=== PATIENT | male | born 1970 ===

== ENCOUNTER 2016-10-27 06:20 | Inpatient (IN) | payer OTHER ==
[2016-10-27 06:31] VITALS: BMI 26.8
[2016-10-27 06:39] LABS: BASO # 0.1 K/uL (0.0-0.2); BASO % 0.9 % (0.0-2.0); EOS # 0.1 K/uL (0.0-0.7); EOS % 0.6 % (0.0-4.0); HEMOGLOBIN 15.3 g/dL (12.0-18.0); LYMPH # 1.9 K/uL (1.0-4.3); MEAN CELL VOLUME 92.2 fL (80.0-94.0); MEAN CORPUSCULAR HEMOGLOBIN 30.7 pg (27.0-31.0); MEAN CORPUSCULAR HGB CONC 33.3 g/dL (33.0-37.0); MEAN PLATELET VOLUME 7.5 fL (7.2-11.7); MONO # 0.5 K/uL (0.0-0.8); MONO % 5.1 % (0.0-10.0); NEUT # 6.5 K/uL (1.8-7.0); NEUT % 72.4 % (50.0-75.0); NRBC % 0.1 % (0.0-2.0); RBC 4.97 Mil/uL (4.40-5.90); RED CELL DISTRIBUTION WIDTH 13.9 % (11.5-14.5)
[2016-10-27 06:46] LABS: PROTHROMBIN TIME 10.8 SECONDS (9.7-12.2)
[2016-10-27 06:55] LABS: ALB/GLOB RATIO 1.1 (1.0-2.1); ALBUMIN 4.3 g/dL (3.5-5.0); ALT/SGPT 40 U/L (21-72); AST/SGOT 52 U/L (17-59); BLOOD UREA NITROGEN 9 mg/dL (9-20); GFR AFRICAN-AMERICAN > 60; GFR NON-AFRICAN AMERICAN > 60
[2016-10-27 07:06] LABS: CK-MB 2.43 ng/mL (0.0-3.38)
[2016-10-27] MEDS ORDERED: Potassium Chloride 20 mEq/15 ml LIQ UD PO STA (07:14)
--- NOTE | 2016-10-27 07:14 | C.PDOC ---
History Of Present Illness Patient is a pleasant 46 yr old male who is c/o pressure-like left sided chest pain that started this morning. The chest pain is a "4 or 5" on a 1-10 scale. The pt also c/o a headache and that his BP is high. He ran out of his BP medication (Lisinopril 10mg) on Monday; he picked up a new prescription yesterday but has not taken any BP medication since Monday. The CP radiates down his arm. No SOB. (+) Nausea. No vomiting. No additional complaints at this time. PMD: Dr. Moustapha Ford Time Seen by Provider: 10/27/16 07:01 Chief Complaint (Nursing): Chest Pain History Per: Patient Onset/Duration Of Symptoms: Hrs Quality: Pressure Associated Symptoms: Nausea Past Medical History Reviewed: Historical Data, Nursing Documentation, Vital Signs Vital Signs: Last Vital Signs Temp 98.6 F 10/28/16 10:16 Pulse 64 10/28/16 10:16 Resp 20 10/28/16 10:16 BP 147/91 H 10/28/16 10:16 Pulse Ox 97 10/28/16 10:16 - Medical History PMH: HTN Family History: States: Hypertension - Social History Hx Alcohol Use: Yes (likes beer) Hx Substance Use: No - Immunization History Hx Tetanus Toxoid Vaccination: No Hx Influenza Vaccination: No Hx Pneumococcal Vaccination: No Review Of Systems Except As Marked, All Systems Reviewed And Found Negative. Constitutional: Negative for: Fever Cardiovascular: Positive for: Chest Pain Respiratory: Negative for: Shortness of Breath Gastrointestinal: Positive for: Nausea Neurological: Negative for: Weakness Psych: Negative for: Anxiety Physical Exam - Physical Exam Appears: Well, Non-toxic, No Acute Distress Skin: Normal Color, Warm Head: Atraumatic Eye(s): bilateral: Normal Inspection, EOMI Ear(s): Bilateral: Normal Nose: Normal Oral Mucosa: Moist Tongue: Normal Appearing Lips: Normal Appearing Teeth: Normal Dentition Gingiva: Normal Appearing Throat: Normal Neck: Normal, Normal ROM Lymphatic: Deferred Chest: Symmetrical, No Deformity Cardiovascular: Rhythm Regular Respiratory: Normal Breath Sounds, No Rales, No Rhonchi, No Wheezing Gastrointestinal/Abdominal: Normal Exam, Bowel Sounds, Soft, No Tenderness Rectal: Deferred Back: Normal Inspection Extremity: Normal ROM, Pedal Edema (mild, non-pitting to LE) Extremity: Bilateral: Atraumatic, Normal ROM Pulses: Left Radial: Normal, Right Radial: Normal Neurological/Psych: Oriented x3, Normal Motor, Normal Sensation ED Course And Treatment - Laboratory Results Result Diagrams: 10/28/16 06:31 10/28/16 06:31 ECG: Interpreted By Me ECG Rhythm: Sinus Tachycardia, R BBB (incomplete), Nonspecific Changes O2 Sat by Pulse Oximetry: 97 Medical Decision Making Medical Decision Making: Initial Impression: Headache and Chest Pain--likely due to BP medication noncompliance Initial Plan: Will give aspirin for CP and Tylenol for GERBER. Will give Lisinopril for elevated BP. EKG. Monitor pt. Check labs/CXR. Progress Notes: 9:15 AM - Case d/w Dr. Alek Sanchez. will admit the pt to his service as pt is requiring IV meds to lower his BP. Disposition - Disposition Disposition: HOSPITALIZED Disposition Time: 09:14 Condition: SERIOUS - Clinical Impression Clinical Impression: Chest pain, Hypokalemia, Hypertensive emergency Decision To Admit - Pt Status Changed To: Hospital Disposition Of: Inpatient - Admit Certification Admit to Inpatient:: After my assessment, the patient will require hospitalization for at least two midnights. This is because of the severity of symptoms shown, intensity of services needed, and/or the medical risk in this patient being treated as an outpatient. - InPatient: Physician Admission Certification: I certify that this patient requires 2 or more midnights of care for the following reason:: Patient with diastolic over 110 and has required IV anti-hypertensive agents - . Bed Request Type: Telemetry Patient Diagnosis: Chest pain, Hypokalemia, Hypertensive emergency
[2016-10-27] MEDS ORDERED: Potassium Chloride 20 mEq ER Tab PO ONE (07:23)
--- NOTE | 2016-10-27 08:10 | RAD ---
HISTORY: chest pain COMPARISON: No prior. FINDINGS: LUNGS: No active pulmonary disease. PLEURA: No significant pleural effusion identified, no pneumothorax apparent. CARDIOVASCULAR: Normal OSSEOUS STRUCTURES: Thoracic spondylosis VISUALIZED UPPER ABDOMEN: Normal. OTHER FINDINGS: None. IMPRESSION: No active disease.
[2016-10-27] MEDS ORDERED: Labetalol 25mg/5ml Syringe IVP STA (08:41)
[2016-10-27] MEDS ORDERED: Labetalol 25mg/5ml Syringe ONE (08:49)
[2016-10-27 13:08] LABS: CK-MB 2.05 ng/mL (0.0-3.38)
[2016-10-27] MEDS ORDERED: Sodium Chloride 0.45% 1,000 ML IV SCH (16:15)
[2016-10-27] MEDS: Multiple Vitamins Tab PO SCH (18:18)
[2016-10-27] MEDS: Enoxaparin 40 mg Syringe SC SCH (18:19)
[2016-10-27 19:14] LABS: CK-MB 1.93 ng/mL (0.0-3.38)
--- NOTE | 2016-10-27 20:15 | CP.PCM.HP ---
<Jonathan Mason E - Last Filed: 10/27/16 20:45> History of Present Illness - History of Present Illness History of Present Illness: CC: Chest Pressure and Headache. HPI: Patient is a 46 year old male with past medical of hypertension, who presents to the ED with chest/head pain and shortness of breath. Patient states that both pains began this morning at 5am, rating the pain in his head as 6/10 and the pain in his chest as 8/10. Patient describes the pain in his head as burning heat and states it is located mostly in the occipital region. He describes the chest pain as piercing and states it is located substernally , extending to the left, lateral chest wall. Patient denies radiation of both the chest and the head pain. Nothing makes the pain in his head better or worse. Standing up worsens his chest pain, but nothing makes it better and it is present at rest. Patient states that the chest pain is non-reproducible with movement, but reports tenderness to palpation of the chest wall. The patient has a history of both uncontrolled hypertension and alcohol abuse. Patient states he has not been taking his 10 mg Lisinopril for the past 3 months and that his blood pressure has not been controlled. Patient denies weakness, palpitations, abdominal pain, fever, chills, dizzines and urinary symptoms but admits to chest pain, dyspnea, diaphoresis, headache, nausea, tinnitus and left leg numbness. PMD: Moustapha Ford. 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 denies former or current tobacco use and illicit drug use but admits to ETOH use ( 2-4 beers/ day M- and 10 beers on monday and Monday) Medication given in the ER: Aspirin 325mg PO, Labetalol 20mg IV, Tylenol 975mg PO, lisinopril 10mg PO and K-dur 20meq Present on Admission - Present on Admission Any Indicators Present on Admission: No Review of Systems - Constitutional Constitutional: Headache. absent: Chills, Fever - EENT Eyes: Blurred Vision. absent: Loss of Peripheral Vision, Sees Flashes, Spots in Vision Ears: Tinnitus. absent: Dizziness Nose/Mouth/Throat: absent: Epistaxis, Sore Throat - Cardiovascular Cardiovascular: Chest Pain, Chest Pain at Rest, Diaphoresis, Dyspnea - Respiratory Respiratory: Dyspnea. absent: Cough, Wheezing - Gastrointestinal Gastrointestinal: absent: Abdominal Pain, Constipation, Diarrhea - Genitourinary Genitourinary: absent: Difficulty Urinating, Dysuria, Urinary Frequency - Musculoskeletal Musculoskeletal: Numbness - Neurological Neurological: Numbness, Headaches. absent: Dizziness, Weakness - Endocrine Endocrine: absent: Fatigue, Palpitations Past Patient History - Past Medical History & Family History Past Medical History?: Yes - Past Social History Smoking Status: Never Smoked - CARDIAC Hx Hypertension: Yes - MUSCULOSKELETAL/RHEUMATOLOGICAL Hx Falls: No - PSYCHIATRIC Hx Substance Use: No - SURGICAL HISTORY Hx Surgeries: No - ANESTHESIA Hx Anesthesia: No Meds Allergies/Adverse Reactions: Allergies Allergy/AdvReac Type Severity Reaction Status Date / Time No Known Allergies Allergy Verified 05/09/16 09:37 Results - Vital Signs Recent Vital Signs: Last Vital Signs Temp 98.4 F 10/27/16 18:14 Pulse 80 10/27/16 18:10 Resp 10 L 10/27/16 18:10 BP 160/101 H 10/27/16 18:18 Pulse Ox 97 10/27/16 13:14 - Labs Result Diagrams: 10/27/16 06:35 10/27/16 06:35 Labs: Laboratory Results - last 24 hr 10/27/16 10/27/16 12:42 18:51 Total Creatine Kinase 312 H 256 H CK-MB (Mass) 2.05 1.93 Troponin I, Quant < 0.0120 < 0.0120 Assessment & Plan (1) Hypertensive urgency Assessment and Plan: On admission: BP: 205/100 ED Medications given: * Lisinopril 10mg PO daily * Labetalol 20mg IVP (10/27/16)Metoprolol Tartate 25mg PO BID Continue home medication: Lisinopril 10mg PO daily Monitor BP Status: Acute (2) Chest pain, rule out acute myocardial infarction Assessment and Plan: Troponin negative X3( <0.0120, <0.0120, <0.0120) CK MB: 2.43---> 2.05-->1.93 CK: 365-->312--->256 - NS 0.45% @ 75mls/hr EKG: Sinus Tachycardia, incomplete RBBB * Repeat EKG: Normal sinus, Incomplete RBBB, Non-specific T wave abnormality Aspirin 81mg PO daily MetoproloL Tartate 25mg PO BID Lisinopril 10mg PO daily Crestor 10mg PO HS Lovenox 40mg SC daily Status: Acute (3) Hypokalemia Assessment and Plan: On Admission: * K+: 3.3 * Repleted in the ED with K-Dur 20meq PO * F/U repeat CMP * Monitor K+ Status: Acute (4) Alcohol abuse Assessment and Plan: Librium Taper PO q6 Multivitamins Folic acid 1mg PO daily Thiamine HCL 100mg PO BID Seizure Pre-cautions Counselled on cessation of alcohol use Status: Acute (5) Prophylactic measure Assessment and Plan: SCDs Pepcid 20mg PO BID Lovenox 40mg SC daily Seizure precautions Status: Acute <DanielReuben M - Last Filed: 10/28/16 18:01> Results - Vital Signs Recent Vital Signs: Last Vital Signs Temp 98.4 F 10/28/16 15:31 Pulse 66 10/28/16 15:31 Resp 20 10/28/16 15:31 BP 131/89 10/28/16 15:31 Pulse Ox 96 10/28/16 15:31 - Labs Result Diagrams: 10/28/16 06:31 10/28/16 06:31 Labs: Laboratory Results - last 24 hr 10/27/16 10/28/16 10/28/16 18:51 06:31 06:31 WBC 9.2 RBC 4.88 Hgb 14.8 Hct 45.5 MCV 93.3 MCH 30.3 MCHC 32.5 L RDW 14.1 Plt Count 279 MPV 7.9 Neut % (Auto) 66.0 Lymph % (Auto) 24.0 [place] % (Auto) 6.7 Eos % (Auto) 2.4 Baso % (Auto) 0.9 Neut # 6.1 Lymph # 2.2 [place] # 0.6 Eos # 0.2 Baso # 0.1 Sodium 133 Potassium 3.4 L Chloride 100 Carbon Dioxide 22 Anion Gap 14 BUN 8 L Creatinine 0.5 L Est GFR ( Amer) > 60 Est GFR (Non-Af Amer) > 60 Random Glucose 83 Calcium 7.9 L Phosphorus 3.7 Magnesium 2.1 Total Bilirubin 0.8 AST 42 ALT 30 Alkaline Phosphatase 87 Total Creatine Kinase 256 H CK-MB (Mass) 1.93 Troponin I, Quant < 0.0120 Total Protein 7.0 Albumin 3.6 Globulin 3.4 Albumin/Globulin Ratio 1.1 Attending/Attestation - Attestation I have personally seen and examined this patient.: Yes I have fully participated in the care of the patient.: Yes I have reviewed all pertinent clinical information: Yes Notes (Text): 10/28/16 18:01 Patient was seen and examined at bedside with the resident Patient is admitted to telemetry unit We will rule out acute coronary syndrome I discussed the plan of care with the resident and agree with the history and physical and assessment/plan by the resident.
[2016-10-28 06:41] LABS: BASO # 0.1 K/uL (0.0-0.2); BASO % 0.9 % (0.0-2.0); EOS # 0.2 K/uL (0.0-0.7); EOS % 2.4 % (0.0-4.0); HEMOGLOBIN 14.8 g/dL (12.0-18.0); LYMPH # 2.2 K/uL (1.0-4.3); MEAN CELL VOLUME 93.3 fL (80.0-94.0); MEAN CORPUSCULAR HEMOGLOBIN 30.3 pg (27.0-31.0); MEAN CORPUSCULAR HGB CONC 32.5 g/dL (33.0-37.0); MEAN PLATELET VOLUME 7.9 fL (7.2-11.7); MONO # 0.6 K/uL (0.0-0.8); MONO % 6.7 % (0.0-10.0); NEUT # 6.1 K/uL (1.8-7.0); RBC 4.88 Mil/uL (4.40-5.90); RED CELL DISTRIBUTION WIDTH 14.1 % (11.5-14.5); WHITE BLOOD COUNT 9.2 K/uL (4.8-10.8)
[2016-10-28 07:08] LABS: ALB/GLOB RATIO 1.1 (1.0-2.1); ALBUMIN 3.6 g/dL (3.5-5.0); ALT/SGPT 30 U/L (21-72); AST/SGOT 42 U/L (17-59); BLOOD UREA NITROGEN 8 mg/dL (9-20); CALCIUM 7.9 mg/dl (8.6-10.4); GFR AFRICAN-AMERICAN > 60; GFR NON-AFRICAN AMERICAN > 60; MAGNESIUM 2.1 mg/dL (1.6-2.3)
[2016-10-28] MEDS ORDERED: Potassium Chloride 20 mEq ER Tab PO STA (08:14)
[2016-10-28] MEDS: Enoxaparin 40 mg Syringe SC SCH (09:09)
[2016-10-28] MEDS: Multiple Vitamins Tab PO SCH (09:09)
[2016-10-28] MEDS ORDERED: Potassium Chloride 20 mEq ER Tab PO ONE ×2 (09:57→19:24)
--- NOTE | 2016-10-28 12:53 | CARD ---
APPROVED REPORT EKG Measurement Heart [id number] CT 178P10 [id number] <Conclusion> Normal sinus rhythm Incomplete right bundle branch block Left anterior fascicular block Nonspecific T wave abnormality Abnormal ECG
--- NOTE | 2016-10-28 13:59 | CARD ---
APPROVED REPORT EKG Measurement Heart [id number] [place] 170P63 [id number] <Conclusion> Sinus tachycardia Incomplete right bundle branch block Left anterior fascicular block Abnormal ECG
--- NOTE | 2016-10-28 14:40 | CARD ---
APPROVED REPORT EKG Measurement Heart [id number] W[place] 162P2 [id number] <Conclusion> Normal sinus rhythm Incomplete right bundle branch block Left anterior fascicular block Abnormal ECG
--- NOTE | 2016-10-28 15:14 | CARD ---
APPROVED REPORT EXAM: Two-dimensional and M-mode echocardiogram with Doppler and color Doppler. Other Information Quality : GoodRhythm : NSR INDICATION Chest Pain RISK FACTORS Hypertension M-Mode DIMENSIONS RVDd1.48 (2.1-3.2cm)Left Atrium (MM)3.94 (2.5-4.0cm) IVSd1.05 (0.7-1.1cm)Aortic Root3.20 (2.2-3.7cm) LVDd5.58 (4.0-5.6cm)Aortic Cusp Exc.1.87 (1.5-2.0cm) PWd1.09 (0.7-1.1cm)FS (%) 35 % LVDs3.63 (2.0-3.8cm)LVEF (%)64 (>50%) Aortic Valve AoV Peak Ztcjivbj990.9cm/Best Peak GR.9mmHg Mitral Valve MV E Rqxixqyq70.5cm/sMV A Dvzppdsh85.0cm/sE/A ratio1.0 TDI E/Lateral E'0.0E/Medial E'0.0 Tricuspid Valve TR Peak Zsxdssng568jj/sTR Peak Gr.40qmTwCZZJ10rwDq LEFT VENTRICLE The left ventricle is normal size. There is normal left ventricular wall thickness. The left ventricular function is normal. The left ventricular ejection fraction is within the normal range. About 65% No regional wall motion abnormalities noted. The left ventricular diastolic function is normal. No left ventricle thrombus noted on this study. There is no ventricular septal defect visualized. There is no left ventricular aneurysm. There is no mass noted in the left ventricle. RIGHT VENTRICLE The right ventricle is normal size. There is normal right ventricular wall thickness. The right ventricular systolic function is normal. ATRIA The left atrium size is normal. The right atrium size is normal. The interatrial septum is intact with no evidence for an atrial septal defect. AORTIC VALVE The aortic valve is normal in structure and function. No aortic regurgitation is present. There is no aortic valvular stenosis. There is no aortic valvular vegetation. MITRAL VALVE The mitral valve is normal in structure and function. There is no evidence of mitral valve prolapse. There is no mitral valve stenosis. There is no mitral valve regurgitation noted. TRICUSPID VALVE The tricuspid valve is normal in structure and function. There is no tricuspid valve regurgitation noted. There is no tricuspid valve prolapse or vegetation. There is no tricuspid valve stenosis. PULMONIC VALVE The pulmonary valve is normal in structure and function. There is no pulmonic valvular regurgitation. There is no pulmonic valvular stenosis. GREAT VESSELS The aortic root is normal in size. The ascending aorta is normal in size. The pulmonary artery is normal. The IVC is normal in size and collapses >50% with inspiration. PERICARDIAL EFFUSION The pericardium appears normal. There is no pleural effusion. <Conclusion> Normal LV systolic function and doppler.
--- NOTE | 2016-10-28 19:15 | CP.PCM.PN ---
<Jonathan Mason E - Last Filed: 10/28/16 19:27> Subjective - Date & Time of Evaluation Date of Evaluation: 10/28/16 Time of Evaluation: 11:10 - Subjective Subjective: Medicine Note (PGY 1) : Dr. Sanchez' service Patient was seen and examined at bedside. Patient states that he is doing well. Patient denies blurry vision, chest pain, sob, nausea, vomiting, palpitation, abdominal pain but admits to mild headache. Patient is tolerating diet and ambulating. Objective - Vital Signs/Intake and Output Vital Signs (last 24 hours): Temp Pulse Resp BP Pulse Ox 98.4 F 66 20 138/89 96 10/28/16 15:31 10/28/16 15:31 10/28/16 15:31 10/28/16 18:12 10/28/16 15:31 Intake and Output: 10/28/16 10/29/16 18:59 06:59 Intake Total 300 Balance 300 - Medications Medications: Current Medications Aspirin (Ecotrin) 81 mg PO DAILY [facility] Last Admin: 10/28/16 09:09 Dose: 81 mg Enoxaparin Sodium (Lovenox) 40 mg SC DAILY [facility] Last Admin: 10/28/16 09:09 Dose: 40 mg Famotidine (Pepcid) 20 mg PO BID [facility] Last Admin: 10/28/16 18:12 Dose: 20 mg Folic Acid (Folic Acid) 1 mg PO DAILY [facility] Last Admin: 10/28/16 09:09 Dose: 1 mg Lisinopril (Zestril) 10 mg PO DAILY [facility] Last Admin: 10/28/16 09:10 Dose: 10 mg Lorazepam (Ativan) 1 mg IVP Q6H PRN PRN Reason: Anxiety Metoprolol Tartrate (Lopressor) 25 mg PO BID [facility] Last Admin: 10/28/16 18:12 Dose: 25 mg Multivitamins (Hexavitamin) 1 tab PO DAILY [facility] Last Admin: 10/28/16 09:09 Dose: 1 tab Rosuvastatin Calcium (Crestor) 10 mg PO HS [facility] Last Admin: 10/27/16 21:44 Dose: 10 mg Thiamine HCl (Vitamin B1 Tab) 100 mg PO BID [facility] Last Admin: 10/28/16 18:12 Dose: 100 mg - Labs Labs: 10/28/16 06:31 10/28/16 06:31 PT 10.8 SECONDS (9.7-12.2) 10/27/16 06:35 INR 1.0 10/27/16 06:35 APTT 27 SECONDS (21-34) 10/27/16 06:35 Assessment and Plan (1) Hypertensive urgency Assessment & Plan: Improving On admission: BP: 205/100 ED Medications given: * Lisinopril 10mg PO daily * Labetalol 20mg IVP (10/27/16)Metoprolol Tartate 25mg PO BID Continue home medication: Lisinopril 10mg PO daily Monitor BP Status: Acute (2) Chest pain, rule out acute myocardial infarction Assessment & Plan: Resovled Troponin negative X3( <0.0120, <0.0120, <0.0120) CK MB: 2.43---> 2.05-->1.93 CK: 365-->312--->256 - NS 0.45% @ 75mls/hr EKG: Sinus Tachycardia, incomplete RBBB * Repeat EKG: Normal sinus, Incomplete RBBB, Non-specific T wave abnormality Aspirin 81mg PO daily MetoproloL Tartate 25mg PO BID Lisinopril 10mg PO daily Crestor 10mg PO HS Lovenox 40mg SC daily Status: Acute (3) Hypokalemia Assessment & Plan: Resolving On Admission: * K+: 3.3 * Repleted in the ED with K-Dur 20meq PO * Repeat CMP: K+: 3.4 -Repleted with K-DUR 40meq (10/28/16) - Continue to monitor Status: Acute (4) Alcohol abuse Assessment & Plan: Librium Taper PO q6 Multivitamins Folic acid 1mg PO daily Thiamine HCL 100mg PO BID Seizure Pre-cautions Counselled on cessation of alcohol use Status: Acute (5) Prophylactic measure Assessment & Plan: SCDs Pepcid 20mg PO BID Lovenox 40mg SC daily Seizure precautions Status: Acute <Reuben Sanchez - Last Filed: 10/29/16 15:22> Objective - Vital Signs/Intake and Output Vital Signs (last 24 hours): Temp Pulse Resp BP Pulse Ox 98.4 F 65 18 128/79 98 10/29/16 07:00 10/29/16 12:29 10/29/16 07:00 10/29/16 09:41 10/29/16 07:00 Intake and Output: 10/29/16 10/29/16 06:59 18:59 Intake Total 640 500 Balance 640 500 - Labs Labs: 10/29/16 06:57 10/29/16 06:57 PT 10.8 SECONDS (9.7-12.2) 10/27/16 06:35 INR 1.0 10/27/16 06:35 APTT 27 SECONDS (21-34) 10/27/16 06:35 Attending/Attestation - Attestation I have personally seen and examined this patient.: Yes I have fully participated in the care of the patient.: Yes I have reviewed all pertinent clinical information, including history, physical exam and plan: Yes Notes (Text): 10/29/16 15:21 Patient was seen and examined at bedside with the resident Patient is clinically improving Blood pressures controlled and follow-up echocardiogram Discharge planning if the echocardiogram is within normal limits Discussed the plan of care with the resident and agree with the history and physical and assessment/plan documented above.
[2016-10-29 00:26] VITALS: O2SAT 98
--- NOTE | 2016-10-29 03:18 | CP.PCM.PN ---
<Karolyn Elise - Last Filed: 10/29/16 03:16> Subjective - Date & Time of Evaluation Date of Evaluation: 10/29/16 Time of Evaluation: 07:00 - Subjective Subjective: PGY1-Medicine Note-Dr. Escobedo Service Patient seen and examined at bedside and is in no acute distress. Patient says he is feeling okay. Patient denies headache, shortness of breath, chest pain, abdominal pain, nausea, vomiting, constipation, or diarrhea. Objective - Vital Signs/Intake and Output Vital Signs (last 24 hours): Temp Pulse Resp BP Pulse Ox 97.0 F L 76 20 133/86 98 10/29/16 00:26 10/29/16 02:15 10/29/16 00:26 10/29/16 00:26 10/29/16 00:26 Intake and Output: 10/28/16 10/29/16 18:59 06:59 Intake Total 300 400 Balance 300 400 - Medications Medications: Current Medications Aspirin (Ecotrin) 81 mg PO DAILY [facility] Last Admin: 10/28/16 09:09 Dose: 81 mg Enoxaparin Sodium (Lovenox) 40 mg SC DAILY [facility] Last Admin: 10/28/16 09:09 Dose: 40 mg Famotidine (Pepcid) 20 mg PO BID [facility] Last Admin: 10/28/16 18:12 Dose: 20 mg Folic Acid (Folic Acid) 1 mg PO DAILY [facility] Last Admin: 10/28/16 09:09 Dose: 1 mg Lisinopril (Zestril) 10 mg PO DAILY [facility] Last Admin: 10/28/16 09:10 Dose: 10 mg Lorazepam (Ativan) 1 mg IVP Q6H PRN PRN Reason: Anxiety Metoprolol Tartrate (Lopressor) 25 mg PO BID [facility] Last Admin: 10/28/16 18:12 Dose: 25 mg Multivitamins (Hexavitamin) 1 tab PO DAILY [facility] Last Admin: 10/28/16 09:09 Dose: 1 tab Rosuvastatin Calcium (Crestor) 10 mg PO HS [facility] Last Admin: 10/28/16 21:52 Dose: 10 mg Thiamine HCl (Vitamin B1 Tab) 100 mg PO BID [facility] Last Admin: 10/28/16 18:12 Dose: 100 mg - Labs Labs: 10/28/16 06:31 10/28/16 06:31 PT 10.8 SECONDS (9.7-12.2) 10/27/16 06:35 INR 1.0 10/27/16 06:35 APTT 27 SECONDS (21-34) 10/27/16 06:35 - Constitutional Appears: Well - Head Exam Head Exam: ATRAUMATIC, NORMAL INSPECTION, NORMOCEPHALIC - Eye Exam Eye Exam: EOMI, Normal appearance, PERRL - ENT Exam ENT Exam: Mucous Membranes Moist, Normal Exam - Neck Exam Neck Exam: Full ROM, Normal Inspection. absent: Lymphadenopathy - Respiratory Exam Respiratory Exam: Clear to Ausculation Bilateral, NORMAL BREATHING PATTERN - Cardiovascular Exam Cardiovascular Exam: REGULAR RHYTHM, RRR, +S1, +S2. absent: Murmur - GI/Abdominal Exam GI & Abdominal Exam: Soft, Normal Bowel Sounds. absent: Distended, Firm, Guarding, Rigid, Tenderness - Rectal Exam Rectal Exam: NORMAL INSPECTION - Extremities Exam Extremities Exam: Normal Inspection - Back Exam Back Exam: NORMAL INSPECTION. absent: rash noted - Neurological Exam Neurological Exam: Alert, Awake, Oriented x3 - Psychiatric Exam Psychiatric exam: Normal Affect, Normal Mood Assessment and Plan - Assessment and Plan (Free Text) Assessment: (1) Hypertensive urgency Assessment & Plan: Improving On admission: BP: 205/100 ED Medications given: * Lisinopril 10mg PO daily * Labetalol 20mg IVP (10/27/16)Metoprolol Tartate 25mg PO BID Continue home medication: Lisinopril 10mg PO daily Monitor BP Status: Acute (2) Chest pain, rule out acute myocardial infarction Assessment & Plan: Resovled Troponin negative X3( <0.0120, <0.0120, <0.0120) CK MB: 2.43---> 2.05-->1.93 CK: 365-->312--->256 - NS 0.45% @ 75mls/hr EKG: Sinus Tachycardia, incomplete RBBB * Repeat EKG: Normal sinus, Incomplete RBBB, Non-specific T wave abnormality Aspirin 81mg PO daily MetoproloL Tartate 25mg PO BID Lisinopril 10mg PO daily Crestor 10mg PO HS Lovenox 40mg SC daily Status: Acute (3) Hypokalemia Assessment & Plan: Resolving On Admission: * K+: 3.3 * Repleted in the ED with K-Dur 20meq PO * Repeat CMP: K+: 3.4 -Repleted with K-DUR 40meq (10/28/16) - Continue to monitor Status: Acute (4) Alcohol abuse Assessment & Plan: Librium Taper PO q6 Multivitamins Folic acid 1mg PO daily Thiamine HCL 100mg PO BID Seizure Pre-cautions Counselled on cessation of alcohol use Status: Acute (5) Prophylactic measure Assessment & Plan: SCDs Pepcid 20mg PO BID Lovenox 40mg SC daily Seizure precautions Status: Acute <DanielReuben M - Last Filed: 10/29/16 16:41> Objective - Vital Signs/Intake and Output Vital Signs (last 24 hours): Temp Pulse Resp BP Pulse Ox 98.4 F 65 18 128/79 98 10/29/16 07:00 10/29/16 12:29 10/29/16 07:00 10/29/16 09:41 10/29/16 07:00 Intake and Output: 10/29/16 10/29/16 06:59 18:59 Intake Total 640 500 Balance 640 500 - Labs Labs: 10/29/16 06:57 10/29/16 06:57 PT 10.8 SECONDS (9.7-12.2) 10/27/16 06:35 INR 1.0 10/27/16 06:35 APTT 27 SECONDS (21-34) 10/27/16 06:35 Attending/Attestation - Attestation I have personally seen and examined this patient.: Yes I have fully participated in the care of the patient.: Yes I have reviewed all pertinent clinical information, including history, physical exam and plan: Yes Notes (Text): 10/29/16 16:40 Patient symptoms resolved Blood pressures controlled No signs of withdrawal Discharge planning.
[2016-10-29 07:18] LABS: BASO # 0.1 K/uL (0.0-0.2); EOS # 0.2 K/uL (0.0-0.7); HEMOGLOBIN 15.6 g/dL (12.0-18.0); LYMPH # 1.8 K/uL (1.0-4.3); MEAN CELL VOLUME 90.6 fL (80.0-94.0); MEAN CORPUSCULAR HGB CONC 34.2 g/dL (33.0-37.0); MEAN PLATELET VOLUME 7.9 fL (7.2-11.7); MONO # 0.5 K/uL (0.0-0.8); MONO % 6.2 % (0.0-10.0); NEUT # 5.1 K/uL (1.8-7.0); NEUT % 66.8 % (50.0-75.0); RBC 5.04 Mil/uL (4.40-5.90); RED CELL DISTRIBUTION WIDTH 13.6 % (11.5-14.5); WHITE BLOOD COUNT 7.6 K/uL (4.8-10.8)
[2016-10-29 07:30] LABS: ALB/GLOB RATIO 1.1 (1.0-2.1); ALBUMIN 3.8 g/dL (3.5-5.0); ALT/SGPT 33 U/L (21-72); AST/SGOT 49 U/L (17-59); BLOOD UREA NITROGEN 12 mg/dL (9-20); CALCIUM 8.6 mg/dl (8.6-10.4); GFR AFRICAN-AMERICAN > 60; GFR NON-AFRICAN AMERICAN > 60; MAGNESIUM 2.2 mg/dL (1.6-2.3)
[2016-10-29 07:59] VITALS: BP 128/79; RESP 18; TEMP 98.4
[2016-10-29] MEDS: Multiple Vitamins Tab PO SCH (09:40)
[2016-10-29] MEDS: Enoxaparin 40 mg Syringe SC SCH (09:40)
[2016-10-29 13:17] VITALS: PULSE 65
--- NOTE | 2016-10-29 15:22 | CP.PCM.DIS ---
<Alla Rowell - Last Filed: 10/29/16 15:15> Provider - Provider Date of Admission: 10/27/16 09:12 Attending physician: Reuben Sanchez MD Time Spent in preparation of Discharge (in minutes): 45 Diagnosis - Discharge Diagnosis (1) Alcohol abuse Status: Chronic (2) Chest pain, rule out acute myocardial infarction Status: Acute (3) Hypertensive urgency Status: Acute Hospital Course - Lab Results Lab Results: Micro Results 10/28/16 09:30 Nose MRSA Culture - Final MRSA NOT DETECTED 10/27/16 Unknown Nose MRSA Culture (Admit) - Final MRSA NOT DETECTED Most Recent Lab Values WBC 7.6 K/uL (4.8-10.8) 10/29/16 06:57 RBC 5.04 Mil/uL (4.40-5.90) 10/29/16 06:57 Hgb 15.6 g/dL (12.0-18.0) 10/29/16 06:57 Hct 45.7 % (35.0-51.0) 10/29/16 06:57 MCV 90.6 fL (80.0-94.0) D 10/29/16 06:57 MCH 31.0 pg (27.0-31.0) 10/29/16 06:57 MCHC 34.2 g/dL (33.0-37.0) 10/29/16 06:57 RDW 13.6 % (11.5-14.5) 10/29/16 06:57 Plt Count 318 K/uL (130-400) 10/29/16 06:57 MPV 7.9 fL (7.2-11.7) 10/29/16 06:57 Neut % (Auto) 66.8 % (50.0-75.0) 10/29/16 06:57 Lymph % (Auto) 24.0 % (20.0-40.0) 10/29/16 06:57 Storey % (Auto) 6.2 % (0.0-10.0) 10/29/16 06:57 Eos % (Auto) 2.0 % (0.0-4.0) 10/29/16 06:57 Baso % (Auto) 1.0 % (0.0-2.0) 10/29/16 06:57 Neut # 5.1 K/uL (1.8-7.0) 10/29/16 06:57 Lymph # 1.8 K/uL (1.0-4.3) 10/29/16 06:57 Storey # 0.5 K/uL (0.0-0.8) 10/29/16 06:57 Eos # 0.2 K/uL (0.0-0.7) 10/29/16 06:57 Baso # 0.1 K/uL (0.0-0.2) 10/29/16 06:57 PT 10.8 SECONDS (9.7-12.2) 10/27/16 06:35 INR 1.0 10/27/16 06:35 APTT 27 SECONDS (21-34) 10/27/16 06:35 Sodium 135 mmol/L (132-148) 10/29/16 06:57 Potassium 3.9 mmol/L (3.6-5.2) 10/29/16 06:57 Chloride 101 mmol/L (98-107) 10/29/16 06:57 Carbon Dioxide 24 mmol/L (22-30) 10/29/16 06:57 Anion Gap 14 (10-20) 10/29/16 06:57 BUN 12 mg/dL (9-20) 10/29/16 06:57 Creatinine 0.5 MG/DL (0.8-1.5) L 10/29/16 06:57 Est GFR ( Amer) > 60 10/29/16 06:57 Est GFR (Non-Af Amer) > 60 10/29/16 06:57 Random Glucose 95 mg/dL (75-110) 10/29/16 06:57 Calcium 8.6 mg/dl (8.6-10.4) 10/29/16 06:57 Phosphorus 4.3 mg/dL (2.5-4.5) 10/29/16 06:57 Magnesium 2.2 mg/dL (1.6-2.3) 10/29/16 06:57 Total Bilirubin 0.7 mg/dL (0.2-1.3) 10/29/16 06:57 AST 49 U/L (17-59) 10/29/16 06:57 ALT 33 U/L (21-72) 07/22/17 06:57 Alkaline Phosphatase 90 U/L (38-126) 10/29/16 06:57 Total Creatine Kinase 256 U/L (55-170) H 10/27/16 18:51 CK-MB (Mass) 1.93 ng/mL (0.0-3.38) 10/27/16 18:51 Troponin I, Quant < 0.0120 ng/mL (0.00-0.120) 10/27/16 18:51 NT-Pro-B Natriuret Pep 17.0 pg/mL (0-450) 10/27/16 07:12 Total Protein 7.2 g/dL (6.3-8.3) 10/29/16 06:57 Albumin 3.8 g/dL (3.5-5.0) 10/29/16 06:57 Globulin 3.4 gm/dL (2.2-3.9) 10/29/16 06:57 Albumin/Globulin Ratio 1.1 (1.0-2.1) 10/29/16 06:57 - Hospital Course Hospital Course: 46 year old male with past medical history of ETOH abuse, and hypertension is admitted to hospital for hypertensive urgency and chest pain rule out ACS. Hypertensive urgency was likeyl due to noncompliance with home medication, lisinopril. In the ED patient received lisinopril and labetalol to bring down blood pressure. Patient was started on lopressor for better blood pressure control, along with continuing lisinopril. Troponins x 3 were negative and EKG showed no ST changes. Echocardiogram was normal with EF of 64%. Patient did not show any signs of ETOH withdrawal. Patient was ambulating without difficulty. This is a summary of patient's hospital stay. Please see EMR for full details. Discharge instructions: Patient is stable for discharge home per Dr. Sanchez. Patient is to follow up with PMD upon discharge. Patient is discharged on the following medications: Metoprolol 25 mg PO BID, Zestril 10 mg po qd, Multivitamins po qd, folic acid 1 mg po qd, Crestor 10 mg po HS, Thiamine 100 mg po BID. Discussed the adverse effects of ETOH abuse and recommend cessation. Please return to ED if symptoms worsen. - Date & Time of H&P Date of H&P: 10/29/16 Time of H&P: 15:17 Discharge Exam - Head Exam Head Exam: ATRAUMATIC, NORMAL INSPECTION, NORMOCEPHALIC - Respiratory Exam Respiratory Exam: absent: Accessory Muscle Use, Respiratory Distress - Cardiovascular Exam Cardiovascular Exam: REGULAR RHYTHM, +S1, +S2 - Extremities Exam Additional comments: no edema or tenderness - Skin Skin Exam: Dry, Intact, Normal Color, Warm Discharge Plan - Discharge Medications Prescriptions: Folic Acid 1 mg PO DAILY #30 tab Lisinopril [Zestril] 10 mg PO DAILY #30 Metoprolol Tartrate [Lopressor] 25 mg PO BID #60 tab Multivitamins [Hexavitamin] 1 tab PO DAILY #30 tab Rosuvastatin Calcium [Crestor] 10 mg PO HS #30 tab Thiamine [Vitamin B1 Tab] 100 mg PO BID #60 tab - Follow Up Plan Condition: SERIOUS Disposition: HOME/ ROUTINE Instructions: Metoprolol (By mouth), Lisinopril (By mouth), Thiamine (Vitamin B -1) (By mouth), Folic Acid (By mouth), Multivitamins with Minerals (By mouth), Rosuvastatin (By mouth), Chest Pain (DC), Heart Healthy Diet (DC), Hypokalemia ( DC), Abuse of Alcohol (DC) Additional Instructions: Patient is stable for discharge home per Dr. Sanchez. Patient is to follow up with PMD upon discharge. Patient is discharged on the following medications: Metoprolol 25 mg PO BID, Zestril 10 mg po qd, Multivitamins po qd, folic acid 1 mg po qd, Crestor 10 mg po HS, Thiamine 100 mg po BID. Discussed the adverse effects of ETOH abuse and recommend cessation. Please return to ED if symptoms worsen. Referrals: Reuben Sanchez MD [Staff Provider] - <Reuben Sanchez - Last Filed: 10/29/16 16:40> Provider - Provider Date of Admission: 10/27/16 09:12 Attending physician: Reuben Sanchez MD Hospital Course - Lab Results Lab Results: Micro Results 10/28/16 09:30 Nose MRSA Culture - Final MRSA NOT DETECTED 10/27/16 Unknown Nose MRSA Culture (Admit) - Final MRSA NOT DETECTED Most Recent Lab Values WBC 7.6 K/uL (4.8-10.8) 10/29/16 06:57 RBC 5.04 Mil/uL (4.40-5.90) 10/29/16 06:57 Hgb 15.6 g/dL (12.0-18.0) 10/29/16 06:57 Hct 45.7 % (35.0-51.0) 10/29/16 06:57 MCV 90.6 fL (80.0-94.0) D 10/29/16 06:57 MCH 31.0 pg (27.0-31.0) 10/29/16 06:57 MCHC 34.2 g/dL (33.0-37.0) 10/29/16 06:57 RDW 13.6 % (11.5-14.5) 10/29/16 06:57 Plt Count 318 K/uL (130-400) 10/29/16 06:57 MPV 7.9 fL (7.2-11.7) 10/29/16 06:57 Neut % (Auto) 66.8 % (50.0-75.0) 10/29/16 06:57 Lymph % (Auto) 24.0 % (20.0-40.0) 10/29/16 06:57 Storey % (Auto) 6.2 % (0.0-10.0) 10/29/16 06:57 Eos % (Auto) 2.0 % (0.0-4.0) 10/29/16 06:57 Baso % (Auto) 1.0 % (0.0-2.0) 10/29/16 06:57 Neut # 5.1 K/uL (1.8-7.0) 10/29/16 06:57 Lymph # 1.8 K/uL (1.0-4.3) 10/29/16 06:57 Storey # 0.5 K/uL (0.0-0.8) 10/29/16 06:57 Eos # 0.2 K/uL (0.0-0.7) 10/29/16 06:57 Baso # 0.1 K/uL (0.0-0.2) 10/29/16 06:57 PT 10.8 SECONDS (9.7-12.2) 10/27/16 06:35 INR 1.0 10/27/16 06:35 APTT 27 SECONDS (21-34) 10/27/16 06:35 Sodium 135 mmol/L (132-148) 10/29/16 06:57 Potassium 3.9 mmol/L (3.6-5.2) 10/29/16 06:57 Chloride 101 mmol/L (98-107) 10/29/16 06:57 Carbon Dioxide 24 mmol/L (22-30) 10/29/16 06:57 Anion Gap 14 (10-20) 10/29/16 06:57 BUN 12 mg/dL (9-20) 10/29/16 06:57 Creatinine 0.5 MG/DL (0.8-1.5) L 10/29/16 06:57 Est GFR ( Amer) > 60 10/29/16 06:57 Est GFR (Non-Af Amer) > 60 10/29/16 06:57 Random Glucose 95 mg/dL (75-110) 10/29/16 06:57 Calcium 8.6 mg/dl (8.6-10.4) 10/29/16 06:57 Phosphorus 4.3 mg/dL (2.5-4.5) 10/29/16 06:57 Magnesium 2.2 mg/dL (1.6-2.3) 10/29/16 06:57 Total Bilirubin 0.7 mg/dL (0.2-1.3) 10/29/16 06:57 AST 49 U/L (17-59) 10/29/16 06:57 ALT 33 U/L (21-72) 10/29/16 06:57 Alkaline Phosphatase 90 U/L (38-126) 10/29/16 06:57 Total Creatine Kinase 256 U/L (55-170) H 10/27/16 18:51 CK-MB (Mass) 1.93 ng/mL (0.0-3.38) 10/27/16 18:51 Troponin I, Quant < 0.0120 ng/mL (0.00-0.120) 10/27/16 18:51 NT-Pro-B Natriuret Pep 17.0 pg/mL (0-450) 10/27/16 07:12 Total Protein 7.2 g/dL (6.3-8.3) 10/29/16 06:57 Albumin 3.8 g/dL (3.5-5.0) 10/29/16 06:57 Globulin 3.4 gm/dL (2.2-3.9) 10/29/16 06:57 Albumin/Globulin Ratio 1.1 (1.0-2.1) 10/29/16 06:57 Attending/Attestation - Attestation I have personally seen and examined this patient.: Yes I have fully participated in the care of the patient.: Yes I have reviewed all pertinent clinical information, including history, physical exam and plan: Yes Notes (Text): 10/29/16 16:39 Patient was seen and examined at bedside with the resident Patient appears comfortable and send blood pressure is well controlled now No signs of withdrawal Patient has been taken off the Librium taper We will discharge the patient to follow with his primary medical doctor. I agree with the discharge note but the resident.
== END 2016-10-29 13:51 | disposition home or self-care (01) | DRG 134 ==
LOC: C.ER 06:20 → C.9E 09:12 → C.9I 12:53 → C.6T 10-28 09:53
PROVIDERS: ADMIT Internal Medicine; ATTEND Internal Medicine
DX: I16.0 Hypertensive urgency (principal); E87.6 Hypokalemia; I10 Essential (primary) hypertension; R07.89 Other chest pain; F10.10 Alcohol abuse, uncomplicated; I45.10 Unspecified right bundle-branch block; H93.19 Tinnitus, unspecified ear; Z91.14 Patient's other noncompliance with medication regimen

== ENCOUNTER 2016-12-07 04:15 | Emergency (ER) | payer OTHER ==
[2016-12-07 04:15] VITALS: BMI 26.8
[2016-12-07 04:27] VITALS: TEMP 98.5
--- NOTE | 2016-12-07 04:43 | C.PDOC ---
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 Pt states he has been noncompliant 2 days with BP meds and also usually consumes " a lot of beer". Pt states he stopped drinking x 2 days as he was trying to self detox since monday. Pt denies CP, palpitations, SOB, dizziness, weakness. (Linh Mcknight) History Per: Patient History/Exam Limitations: no limitations Onset/Duration Of Symptoms: Sudden Onset (PADDER CUSHION) Severity: Moderate Quality: Tightness Preceeding Symptoms: None Associated Symptoms: denies: Photophobia, Blurred Vision, Vomiting, Extremity Weakness Recent travel outside of the [place]: No <Linh Mcknight - Last Filed: 12/07/16 07:11> <Carolina Anguiano - Last Filed: 12/07/16 07:45> Time Seen by Provider: 12/07/16 04:27 Chief Complaint (Nursing): Headache Past Medical History - Medical History PMH: HTN Family History: States: Unknown Family Hx, Hypertension - Social History Hx Tobacco Use: No Hx Alcohol Use: Yes (likes beer) Hx Substance Use: No - Immunization History Hx Tetanus Toxoid Vaccination: No Hx Influenza Vaccination: No Hx Pneumococcal Vaccination: No <Linh Mcknight - Last Filed: 12/07/16 07:11> Review Of Systems Constitutional: Negative for: Fever, Sweats Eyes: Negative for: Vision Change Cardiovascular: Negative for: Chest Pain, Palpitations Respiratory: Negative for: Shortness of Breath Neurological: Positive for: Headache. Negative for: Weakness, Numbness, Change in Speech, Dizziness <Linh Mcknight - Last Filed: 12/07/16 07:11> Physical Exam - Physical Exam Appears: Well Skin: Normal Color Head: Atraumatic Eye(s): bilateral: Normal Inspection, PERRL Neck: Normal Cardiovascular: Rhythm Regular Respiratory: Normal Breath Sounds, No Wheezing Gastrointestinal/Abdominal: Normal Exam Back: Normal Inspection Extremity: Normal ROM, Other ((+) hand tremors) Neurological/Psych: Oriented x3, Normal Speech, Normal Cognition Gait: Steady <Linh Mcknight - Last Filed: 12/07/16 07:11> ED Course And Treatment - Laboratory Results Result Diagrams: 12/07/16 06:52 12/07/16 06:52 O2 Sat by Pulse Oximetry: 97 Pulse Ox Interpretation: Normal Progress Note: Ativan and labetalol ordered. Pt still with elevated BP, and mild headache. No CP, visual c/o. Pt c/o of feeling and appears very anxious. Clonidine 0.2 mg PO and ativan 1mg IV ordered as well as reglan IV. Pt was s/o to Dr anguiano, pending labs and reevaluation <Linh Mcknight - Last Filed: 12/07/16 07:11> - Laboratory Results Result Diagrams: 12/07/16 06:52 12/07/16 06:52 <Carolina Anguiano - Last Filed: 12/07/16 07:45> Disposition - Disposition Disposition Time: 07:16 <Linh Mcknight - Last Filed: 12/07/16 07:11> <Carolina Anguiano - Last Filed: 12/07/16 07:45> - Disposition Condition: STABLE Forms: [facility] (Paraguayan) - Clinical Impression Clinical Impression: Headache, Alcohol withdrawal Physician Patient Turnover Patient Signed Over To: Carolina Anguiano Handoff Comments: Pending labs, and reeval <Linh Mcknight - Last Filed: 12/07/16 07:11> Addendum <Linh Mcknight - Last Filed: 12/07/16 07:11> <Carolina Anguiano - Last Filed: 12/07/16 07:45> Addendum: 12/07/16 07:44 Patient is currently sleeping on stretcher, arousable to verbal stimuli. He states he is feeling better, headache has improved. Vitals improved, blood work unremarkable. Will discharge patient home. Instructed him to follow up with PMD/clinic in 1-2 days, and he understands he should return to ED if symptoms return/worsen. (Carolina Anguiano)
[2016-12-07 07:02] LABS: BASO # 0.1 K/uL (0.0-0.2); CHLORIDE 102 mmol/L (98-107); EOS % 0.3 % (0.0-4.0); HEMATOCRIT 41.4 % (35.0-51.0); LYMPH # 1.2 K/uL (1.0-4.3); LYMPH % 13.8 % (20.0-40.0); MEAN CELL VOLUME 92.2 fL (80.0-94.0); MEAN CORPUSCULAR HGB CONC 33.6 g/dL (33.0-37.0); MEAN PLATELET VOLUME 7.9 fL (7.2-11.7); MONO # 0.5 K/uL (0.0-0.8); NRBC % 0.1 % (0.0-2.0); RED CELL DISTRIBUTION WIDTH 14.2 % (11.5-14.5)
[2016-12-07 07:03] LABS: POTASSIUM 3.8 mmol/L (3.6-5.2); SODIUM 140 mmol/L (132-148)
[2016-12-07 07:05] LABS: BILIRUBIN,TOTAL 0.5 mg/dL (0.2-1.3); GFR AFRICAN-AMERICAN > 60
[2016-12-07 07:06] LABS: ALB/GLOB RATIO 1.1 (1.0-2.1); ALKALINE PHOSPHATASE 95 U/L (38-126); ALT/SGPT 42 U/L (21-72); AST/SGOT 60 U/L (17-59); BLOOD UREA NITROGEN 10 mg/dL (9-20); CALCIUM 8.1 mg/dl (8.6-10.4); CARBON DIOXIDE 22 mmol/L (22-30); GLUCOSE,RANDOM 107 mg/dL (75-110); TOTAL PROTEIN 7.4 g/dL (6.3-8.3)
[2016-12-07 07:07] LABS: ALCOHOL SERUM < 10 mg/dl (0-10)
[2016-12-07 07:19] VITALS: BP 168/99; PULSE 88; RESP 18; O2SAT 99
== END 2016-12-07 07:46 | disposition home or self-care (01) ==
LOC: C.ER 04:15
DX: R51 Headache (principal); F10.239 Alcohol dependence with withdrawal, unspecified; Y90.0 Blood alcohol level of less than 20 mg/100 ml; I10 Essential (primary) hypertension
CPT/HCPCS: 80053; 80320; 85025; 96374; 99285; J2060